=== PATIENT | male | born 1960 | race Caucasian/White ===

== ENCOUNTER 2017-10-19 17:20 | Emergency (ER) | payer MEDICAID ==
[~2017-10-19] VITALS: Ht 172.7 cm; Wt 83.9 kg
[~2017-10-19 17:20] MED LIST: ASPIRIN ADULT L81 M2 PO; LIPITOR40 MG PO; LISINOPRIL2.5 MG PO; METOPROLOL 25 M25 MG PO; PLAVIX75 MG PO
--- OUTSIDE RECORDS SUMMARY | 2017-10-19 17:39 | External Medical Summary Rpt | CCD ---
Author Author , VERO PHAM Address Unknown Phone [email or web address] Care Team Providers Care Netbackup Administrator Name Role Phone [facility] Unavailable Unavailable [facility] Unavailable Unavailable [facility], Unavailable Unavailable [facility], Unavailable Unavailable [facility] Purpose Continuity of Care Document - 12-30-2013 through 2016 Problems Code Diagnosis DOS Provider Status E785 HYPERLIPIDE 12-20-2016 [facility] UNSPECIFIED [place] I10 ESSENTIAL 12-20-2016 [facility] HYPERTENSIO [place] N M4806 SPINAL 12-20-2016 [facility] LUMBAR [place] REGION M5440 [place] 12-20-2016 ORIENTAL ORTHODOX WITH [facility]ATICA [place] UNSPECIFIED SIDE M5441 [place] 12-20-2016 [facility] RIGHT SIDE M5442 [place] 12-20-2016 [facility] LEFT SIDE R200 ANESTHESIA 12-20-2016 [facility] SKIN HEALTH [place] R531 WEAKNESS 12-20-2016 [facility] R739 HYPERGLYCEM 12-20-2016 [facility] UNSPECIFIED [facility] R9431 ABNORMAL 12-20-2016 [facility] ELECTROCARD EMERGENCY IOGRAM [facility] [id number] CHEST PAIN 02-27-2014 [facility] [id number] ACUT 12-30-2013 [facility] INFARCT OT MED CTR INF WALL INIT EPIS CARE 4275 CARDIAC 12-30-2013 [facility] Allergies, Adverse Reactions, Alerts Clinical Alert Notifications Alert Diabetes: no A1C in the last 6 months Diabetes: no eye exam in the last 365 days Diabetes: no influenza vaccine in the last 365 days Diabetes: no lipid panel in the last 365 days Diabetes: no urine protein screening in the last 365 days Medications Na ND Rx Da Fi Fi Am Da Di Ph RX Ph St me C No te ll ll ou ys ag ar # ys at rm s nt no ma ic us Or Da si cy ia de te s n re d LI 68 12 12 90 90 00 KR Ac SI 18 -3 -0 .0 00 OG ti NO 00 1- 1- 00 06 ER ve IA 51 20 20 70 [place] 20 16 17 42 PH 1 36 AR 2. MA 5 CY MG L- TA 37 BL 1 ET AT 68 10 12 90 90 00 KR Ac OR 64 -2 -0 .0 00 OG ti VA 50 6- 1- [address] 48 20 20 70 AT 35 16 17 77 PH IN 4 27 AR MA 40 CY MG L- 37 TA 1 BL ET LI 68 10 11 90 90 00 KR Ac SI 18 -1 -1 .0 00 OG ti NO 00 2- 0- 00 06 ER ve IA 51 20 20 75 [place] 20 17 17 74 PH 1 63 AR 2. MA 5 CY MG L- TA 37 BL 1 ET ME 62 09 10 60 30 00 KR Ac TO 33 -2 -2 .0 00 OG ti IA 20 2- 0- 00 06 ER ve OL 11 20 20 73 OL 23 17 17 91 PH 1 15 AR TA MA RT CY RA TE L- 37 25 1 MG TA B ME 62 07 08 60 30 00 KR Ac TO 33 -2 -2 .0 00 OG ti IA 20 8- 5- 00 06 ER ve OL 11 20 20 73 OL 23 17 17 91 PH 1 15 AR TA MA RT CY RA TE L- 37 25 1 MG TA B AT 68 08 08 90 90 00 KR Ac OR 64 -0 -2 .0 00 OG ti VA 50 1- 5- [address] 48 20 20 70 AT 35 17 17 77 PH IN 4 27 AR MA 40 CY MG L- 37 TA 1 BL ET LI 68 07 08 90 90 00 KR Ac SI 18 -1 -0 .0 00 OG ti NO 00 0- 4- 00 06 ER ve IA 51 20 20 70 [place] 20 17 17 42 PH 1 36 AR 2. MA 5 CY MG L- TA 37 BL 1 ET ME 00 06 06 60 30 00 KR Ac TO 90 -0 -3 .0 00 OG ti IA 46 3- 0- 00 06 ER ve OL 34 20 20 73 OL 06 17 17 91 PH 0 15 AR TA MA RT CY RA TE L- 37 25 1 MG TA B AT 68 04 05 90 90 00 KR Ac OR 64 -2 -2 .0 00 OG ti VA 50 9- 6- [address] 48 20 20 70 AT 35 17 17 77 PH IN 4 27 AR MA 40 CY MG L- 37 TA 1 BL ET ME 00 04 05 60 30 00 KR Ac TO 90 -1 -0 .0 00 OG ti IA 46 2- 5- 00 06 ER ve OL 34 20 20 71 OL 06 17 17 98 PH 0 34 AR TA MA RT CY RA TE L- 37 25 1 MG TA B LI 68 04 04 90 90 00 KR Ac SI 18 -0 -2 .0 00 OG ti NO 00 2- 8- 00 06 ER ve IA 51 20 20 70 [place] 20 17 17 42 PH 1 36 AR 2. MA 5 CY MG L- TA 37 BL 1 ET ME 00 02 03 60 30 00 KR Ac TO 90 -1 -1 .0 00 OG ti IA 46 7- 7- 00 06 ER ve OL 34 20 20 71 OL 06 17 17 98 PH 0 34 AR TA MA RT CY RA TE L- 37 25 1 MG TA B ME 65 02 03 60 30 00 KR Ac TF 86 -1 -1 .0 00 OG ti OR 20 0- 0- 00 06 ER ve WV 00 20 20 72 N 89 17 17 32 PH HC 9 03 AR L MA 50 CY 0 MG L- 37 TA 1 BL ET OX 00 02 03 15 3 00 KR Ac YC 40 -1 -1 .0 00 OG ti OD 60 0- 0- 00 02 ER ve ON 51 20 20 26 E- 20 17 17 88 PH AC 1 03 AR ET MA AM CY IN OP L- HE 37 N 1 5- 32 5 ME 31 02 03 20 5 00 KR TH 72 -1 -1 .0 00 OG ti OC 20 0- 0- 00 06 ER ve AR 53 20 20 72 BA 30 17 17 32 PH MO 1 05 AR L MA 50 CY 0 MG L- 37 TA 1 BL ET IA 00 02 03 8. 4 00 KR ED 05 -1 -1 00 00 OG ti NI 40 0- 0- 0 06 ER ve SO 01 20 20 72 NE 82 17 17 32 PH 5 08 AR 20 MA CY MG L- TA 37 BL 1 ET ME 00 01 02 60 30 00 KR Ac TO 90 -1 -1 .0 00 OG ti IA 46 8- 0- 00 06 ER ve OL 34 20 20 71 OL 08 17 17 98 PH 0 34 AR TA MA RT CY RA TE L- 37 25 1 MG TA B Results Labs Lab Lab Date Result Refere Interp Status Commen Order Detail nces retati t Range on Troponin T SerPl Ql (12-20-2016 16:34) Troponi 0.00 0.00-0. complet n I 017 ng/mL 07 ed SerPl-m 16:34 Cnc Comment: Serial Number: [id number] Sales Route Driver: [id number] CBC W Diff pnl,unspecified Bld (12-20-2016 16:30) WBC 6.44 3.50-10 complet nRBC 017 10*3/mm .80 ed cor # 16:30 3 Bld RBC # 5.06 4.20-5. complet Bld 017 10*6/mm 76 ed Auto 16:30 3 Hgb 15.3 13.1-17 complet Bld-mCn 017 g/dL .5 ed c 16:30 Hct VFr 44.4 % 38.9-50 complet Bld 017 .9 ed Auto 16:30 MCV RBC 87.7 fL 80.0-99 complet Auto 017 .0 ed 16:30 MCH RBC 30.2 pg 27.0-31 complet Qn 017 .0 ed Auto 16:30 MCHC 34.5 32.0-36 complet RBC 017 g/dL .0 ed Auto-mC 16:30 nc RDW RBC 13.0 % 11.3-14 complet 017 .5 ed Auto-Rt 16:30 o RDW RBC 41.2 fl 37.0-54 complet Auto 017 .0 ed 16:30 PMV Bld 8.9 fL 6.0-12. complet Auto 017 0 ed 16:30 Platele 279 150-450 complet t # Bld 017 10*3/mm ed Auto 16:30 3 Neutrop 53.8 % 41.0-71 complet hils 017 .0 ed NFr Bld 16:30 Auto Lymphoc 34.0 % 24.0-44 complet ytes 017 .0 ed NFr Bld 16:30 Auto Monocyt 02-09-2 7.9 % 0.0-12. complet es NFr 017 0 ed Bld 16:30 Auto Eosinop 2 1.9 % 0.0-3.0 complet hil NFr 017 ed Bld 16:30 Auto Basophi 12-20-2 0.5 % 0.0-1.0 complet ls NFr 017 ed Bld 16:30 Auto Imm 2 1.9 % 0.0-0.6 complet Granulo 017 ed cytes 16:30 NFr Bld Neutrop 2 3.47 1.50-8. complet hils # 017 10*3/mm 30 ed Bld 16:30 3 Auto Lymphoc 2.19 0.60-4. complet ytes # 017 10*3/mm 80 ed Bld 16:30 3 Auto Monocyt 2 0.51 0.00-1. complet es # 017 10*3/mm 00 ed Bld 16:30 3 Auto Eosinop 0.12 0.10-0. complet hil # 017 10*3/mm 30 ed Bld 16:30 3 Auto Basophi 09-2 0.03 0.00-0. complet ls # 017 10*3/mm 20 ed Bld 16:30 3 Auto Imm 2 0.12 0.00-0. complet Granulo 017 10*3/mm 03 ed cytes # 16:30 3 Bld Comp Metab 1998 Pnl SerPl (12-20-2016 16:30) Comment: [employer] Guidelines Comment: Comment: Stage Description GFR Comment: 1 Normal or High 90+ Comment: 2 Mild decrease 60-89 Comment: 3 Moderate decrease 30-59 Comment: 4 Severe decrease 15-29 Comment: 5 Kidney failure <15 Glucose 352 70-100 complet 017 mg/dL ed Bld-mCn 16:30 c BUN 16 9-23 complet Bld-mCn 017 mg/dL ed c 16:30 Creat 1.30 0.60-1. complet Bld-mCn 017 mg/dL 30 ed c 16:30 Sodium 133 132-146 complet Bld-sCn 017 mmol/L ed c 16:30 Potassi 4.0 3.5-5.5 complet um 017 mmol/L ed Bld-sCn 16:30 c Chlorid 101 99-109 complet e 017 mmol/L ed SerPl-s 16:30 Cnc CO2 30.0 20.0-31 complet SerPl-s 017 mmol/L .0 ed Cnc 16:30 Calcium 9.9 8.7-10. complet 017 mg/dL 4 ed XXX-sCn 16:30 c Prot 7.5 5.7-8.2 complet SerPl-m 017 g/dL ed Cnc 16:30 Albumin 4.60 3.20-4. complet 017 g/dL 80 ed SerPl-m 16:30 Cnc ALT 28 U/L 7-40 complet SerPl w 017 ed 16:30 P-5'-P- cCnc AST 16 U/L 0-33 complet SerPl-c 017 ed Cnc 16:30 ALP 110 U/L 25-100 complet SerPl-c 017 ed Cnc 16:30 Bilirub 0.3 0.3-1.2 complet 017 mg/dL ed SerPl-m 16:30 Cnc GFR/BSA 57 >60 complet .pred 017 mL/min/ ed SerPl 16:30 1.73 MDRD-Ar VRat Globuli 2.9 complet n Ur 017 gm/dL ed Elph-mC 16:30 nc Albumin 1.6 1.5-2.5 complet /Glob 017 g/dL ed SerPl 16:30 BUN/Cre 12.3 7.0-25. complet at 017 0 ed SerPl 16:30 Anion 2.0 3.0-11. complet Gap3 017 mmol/L 0 ed SerPl-s 16:30 Cnc Encounters Encounter Start End Date Code Location Performer Type Date [facility]
--- OUTSIDE RECORDS SUMMARY | 2017-10-19 17:39 | External Medical Summary Rpt | CCD ---
Author Author , VERO PHAM Address Unknown Phone [email or web address] Care Team Providers Care Pump House Engineer Name Role Phone [facility] Unavailable [facility]available [facility] Unavailable Unavailable [facility], Unavailable Unavailable [facility], Unavailable Unavailable [facility] Purpose Continuity of Care Document - 12-30-2013 through 2016 Problems Code Diagnosis DOS Provider Status E785 HYPERLIPIDE 12-20-2016 [facility] UNSPECIFIED [place] I10 ESSENTIAL 12-20-2016 [facility] HYPERTENSIO [place] N M4806 SPINAL 12-20-2016 [facility] LUMBAR [place] REGION M5440 [place] 12-20-2016 CONFUCIANIST WITH [facility]AT[facility] [place] UNSPECIFIED SIDE M5441 [place] 12-20-2016 [facility]GENC[facility] RIGHT SIDE M5442 [place] 12-20-2016 [facility] LEFT SIDE R200 ANESTHESIA 12-20-2016 [facility] SKIN HEALTH [place] R531 WEAKNESS 12-20-2016 [facility] R739 HYPERGLYCEM 12-20-2016 [facility] UNSPECIFIED [facility] R9431 ABNORMAL 12-20-2016 [facility] ELECTROCARD [facility]ERGENCY IOGRAM [facility] [id number] CHEST PAIN 02-27-2014 [facility] 86182 ACUT 12-30-2013 [facility] INFARCT OT MED CTR INF WALL [...] 00 1- 1- 00 06 ER ve NE 51 20 20 70 [place] 20 16 [...] 00 2- 0- 00 06 ER ve NE 51 20 20 75 [place] 20 17 17 74 PH 1 63 AR 2. MA 5 CY MG L- TA 37 BL 1 ET ME 62 09 10 60 30 00 KR Ac TO 33 -2 -2 .0 00 OG ti NE 20 2- 0- 00 06 ER ve OL 11 20 20 73 OL 23 17 17 91 PH 1 15 AR TA MA RT CY RA TE L- 37 25 1 MG TA B ME 62 07 08 60 30 00 KR Ac TO 33 -2 -2 .0 00 OG ti NE 20 8- 5- 00 06 ER ve [...] 00 0- 4- 00 06 ER ve NE 51 20 20 70 IL 20 17 17 42 PH 1 36 AR 2. MA 5 CY MG L- TA 37 BL 1 ET ME 00 06 06 60 30 00 KR Ac TO 90 -0 -3 .0 00 OG ti NE 46 3- 0- 00 06 ER ve [...] 90 -1 -0 .0 00 OG ti NE 46 2- 5- 00 06 ER ve OL 34 20 20 71 OL 06 17 17 98 PH 0 34 AR TA MA RT CY RA TE L- 37 25 1 MG TA B LI 68 04 04 90 90 00 KR Ac SI 18 -0 -2 .0 00 OG ti NO 00 2- 8- 00 06 ER ve NE 51 20 20 70 IL 20 17 17 42 PH 1 36 AR 2. MA 5 CY MG L- TA 37 BL 1 ET ME 00 02 03 60 30 00 KR Ac TO 90 -1 -1 .0 00 OG ti NE 46 7- 7- 00 06 ER ve OL 34 20 20 71 OL 06 17 17 98 PH 0 34 AR TA MA RT CY RA TE L- 37 25 1 MG TA B ME 65 02 03 60 30 00 KR Ac TF 86 -1 -1 .0 00 OG ti OR 20 0- 0- 00 06 ER ve WI 00 20 20 72 N 89 17 [...] MG L- 37 TA 1 BL ET NE 00 02 03 8. 4 00 KR [...] 90 -1 -1 .0 00 OG ti NE 46 8- 0- 00 06 ER ve [...] ed SerPl-m 16:34 Cnc Comment: Serial Number: [id number] Hospital Social Worker: [id number] CBC W Diff pnl,unspecified Bld (12-20-2016 16:30) [...] End Date Code Location Performer Type Date [facility]
--- OUTSIDE RECORDS SUMMARY | 2017-10-19 17:40 | External Medical Summary Rpt | CCD ---
Demographics Preferred Language Maldivian Marital Status Unknown Faith Affiliation Unknown Race Unknown Ethnic Group Unknown Author Author VERO Address Unknown Phone [email or web address] Purpose Continuity of Care Document - through 2016
--- OUTSIDE RECORDS SUMMARY | 2017-10-19 17:40 | External Medical Summary Rpt | CCD ---
Demographics Preferred Language Azeri Marital Status Unknown Voodoo Affiliation Unknown Race Unknown Ethnic Group Unknown Author Author , VERO PHAM Address Unknown Phone Immunization No patient found.
--- OUTSIDE RECORDS SUMMARY | 2017-10-19 17:40 | External Medical Summary Rpt | CCD ---
Demographics Preferred Language Portuguese Marital Status Unknown Cheondoism Affiliation Unknown Race Unknown Ethnic Group Unknown Author Author VERO Address Unknown Phone [email or web address] Purpose Continuity of Care Document - through 2016
--- OUTSIDE RECORDS SUMMARY | 2017-10-19 17:40 | External Medical Summary Rpt | CCD ---
Demographics Preferred Language Armenian Marital Status Unknown Judaism Affiliation Unknown Race Unknown Ethnic Group Unknown Author Author , VERO PHAM Address Unknown Phone Immunization No patient found.
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
[2017-10-19 18:22] VITALS: BP 145/81
== END 2017-10-19 18:23 ==
LOC: ER 17:20
DX: Z02.89 Encounter for other administrative examinations (principal); I10 Essential (primary) hypertension; Z72.0 Tobacco use